=== PATIENT | female | born 1950 | race Caucasian/White ===

== ENCOUNTER → 2016-09-17 | Outpatient (CLI) | payer BC ==
[~2016-09-17] MED LIST: CATAPRES 0.1MG0.1 MG PO; COZAAR25 MG PO; DIABETA 5 MG TAB5 MG PO; ESTRADIOL1 EAC7 TD; FORTAMET500 MG PO; MULTI FOR HER1 EACH PO; OMEGA 3 FISH O1 EACH PO; OMNICEF 300 MG300 MG PO; PRAVASTATIN SOD40 MG PO; TYLENOL 325MG325 MG PO
== END ==
LOC: MAMO 15:00
DX: I10 Essential (primary) hypertension (principal); Z80.3 Family history of malignant neoplasm of breast; R92.1 Mammographic calcification found on diagnostic imaging of breast
CPT/HCPCS: G0202

== ENCOUNTER → 2016-10-03 | Outpatient (CLI) | payer BC | LOC: MAMO 07:57 | DX: R92.8 Other abnormal and inconclusive findings on diagnostic imaging of breast (principal) | CPT/HCPCS: G0206 ==

== ENCOUNTER → 2020-10-06 | Outpatient (CLI) | payer BC, OTHER | LOC: MAMO 08-29 09:30 | DX: Z12.31 Encounter for screening mammogram for malignant neoplasm of breast (principal); Z53.9 Procedure and treatment not carried out, unspecified reason ==

== ENCOUNTER → 2020-11-17 | Outpatient (CLI) | payer BC | LOC: LAB 09:20 | DX: Z76.82 Awaiting organ transplant status (principal) | CPT/HCPCS: 36415 ==

== ENCOUNTER → 2020-12-01 | Outpatient (CLI) | payer BC ==
[~2020-12-01] VITALS: Ht 157.5 cm; Wt 69.9 kg
[2020-12-01 10:30] LABS: HEMOGLOBIN 8.6 gm/dl (12.3-15.3)
== END ==
LOC: OPSV 09:00
PROVIDERS: Internal Medicine
DX: I12.9 Hypertensive chronic kidney disease with stage 1 through stage 4 chronic kidney disease, or unspecified chronic kidney disease (principal); N18.4 Chronic kidney disease, stage 4 (severe); D63.1 Anemia in chronic kidney disease; E55.9 Vitamin D deficiency, unspecified; E53.8 Deficiency of other specified B group vitamins
CPT/HCPCS: 36415; 85014; 85018; 96372; Q4081; Q5105

== ENCOUNTER → 2020-12-13 | Outpatient (CLI) | payer BC ==
[~2020-12-13] VITALS: Ht 157.5 cm; Wt 69.9 kg
[2020-12-13 10:32] LABS: HEMOGLOBIN 8.5 gm/dl (12.3-15.3)
== END ==
LOC: MAMO 10-06 11:30 → OPSV 09:50 → MAMO 13:00
PROVIDERS: Family Medicine
DX: Z01.818 Encounter for other preprocedural examination (principal); Z12.31 Encounter for screening mammogram for malignant neoplasm of breast; E11.22 Type 2 diabetes mellitus with diabetic chronic kidney disease; I12.9 Hypertensive chronic kidney disease with stage 1 through stage 4 chronic kidney disease, or unspecified chronic kidney disease; D63.1 Anemia in chronic kidney disease; N18.4 Chronic kidney disease, stage 4 (severe); Z76.82 Awaiting organ transplant status
CPT/HCPCS: 36415; 77063; 77067; 85014; 85018; 96372; Q5105

== ENCOUNTER → 2020-12-27 | Outpatient (CLI) | payer BC, MEDICARE ==
[~2020-12-27] VITALS: Ht 157.5 cm; Wt 69.9 kg
== END ==
LOC: OPSV 10:00
PROVIDERS: Internal Medicine
DX: N18.4 Chronic kidney disease, stage 4 (severe) (principal); D63.1 Anemia in chronic kidney disease
CPT/HCPCS: 36415; 85014; 85018; 96372; Q5105

== ENCOUNTER → 2021-01-10 | Outpatient (CLI) | payer BC, MEDICARE ==
[~2021-01-10] VITALS: Ht 157.5 cm; Wt 69.9 kg
== END ==
LOC: OPSV 09:03
PROVIDERS: Internal Medicine Nephrology
DX: N18.4 Chronic kidney disease, stage 4 (severe) (principal); D63.1 Anemia in chronic kidney disease
CPT/HCPCS: 36415; 85014; 85018; 96372; Q5106

== ENCOUNTER → 2021-01-25 | Outpatient (CLI) | payer BC, MEDICARE ==
[~2021-01-25] VITALS: Ht 157.5 cm; Wt 69.9 kg
[2021-01-25 09:33] LABS: HEMOGLOBIN 8.1 gm/dl (12.3-15.3)
== END ==
LOC: OPSV 01-24 10:00
PROVIDERS: Internal Medicine Nephrology
DX: N18.4 Chronic kidney disease, stage 4 (severe) (principal); D63.1 Anemia in chronic kidney disease
CPT/HCPCS: 36415; 85014; 85018; 96372; Q5106

== ENCOUNTER → 2021-02-08 | Outpatient (CLI) | payer BC, MEDICARE ==
[~2021-02-08] VITALS: Ht 157.5 cm; Wt 69.9 kg
[2021-02-08 09:50] LABS: HEMOGLOBIN 8.3 gm/dl (12.3-15.3)
== END ==
LOC: OPSV 09:00
PROVIDERS: Internal Medicine Nephrology
DX: N18.4 Chronic kidney disease, stage 4 (severe) (principal); D63.1 Anemia in chronic kidney disease
CPT/HCPCS: 36415; 85014; 85018; 96372; Q5105

== ENCOUNTER → 2021-02-21 | Outpatient (CLI) | payer BC, MEDICARE ==
[~2021-02-21] VITALS: Ht 157.5 cm; Wt 69.9 kg
[2021-02-21 10:01] LABS: HEMOGLOBIN 8.2 gm/dl (12.3-15.3)
== END ==
LOC: OPSV 09:00
PROVIDERS: Internal Medicine Nephrology
DX: N18.4 Chronic kidney disease, stage 4 (severe) (principal); D63.1 Anemia in chronic kidney disease
CPT/HCPCS: 36415; 85014; 85018; 96372; Q5105; Q5106

== ENCOUNTER → 2021-03-07 | Outpatient (CLI) | payer BC, MEDICARE ==
[~2021-03-07] VITALS: Ht 157.5 cm; Wt 69.9 kg
[2021-03-07 10:00] LABS: HEMOGLOBIN 8.7 gm/dl (12.3-15.3)
== END ==
LOC: OPSV 09:00
PROVIDERS: Internal Medicine
DX: N18.4 Chronic kidney disease, stage 4 (severe) (principal); D63.1 Anemia in chronic kidney disease
CPT/HCPCS: 36415; 85014; 85018; 96372; Q5105

== ENCOUNTER → 2021-03-21 | Outpatient (CLI) | payer BC, MEDICARE ==
[~2021-03-21] VITALS: Ht 157.5 cm; Wt 69.9 kg
[2021-03-21 09:47] LABS: HEMOGLOBIN 8.9 gm/dl (12.3-15.3)
== END ==
LOC: OPSV 09:15
PROVIDERS: Internal Medicine Nephrology
DX: N18.4 Chronic kidney disease, stage 4 (severe) (principal); D63.1 Anemia in chronic kidney disease
CPT/HCPCS: 36415; 85014; 85018; 96372; Q5106

== ENCOUNTER → 2021-04-04 | Outpatient (CLI) | payer BC, MEDICARE ==
[~2021-04-04] VITALS: Ht 157.5 cm; Wt 69.9 kg
[2021-04-04 09:20] LABS: HEMOGLOBIN 8.9 gm/dl (12.3-15.3)
== END ==
LOC: OPSV 09:00
PROVIDERS: Internal Medicine
DX: N18.4 Chronic kidney disease, stage 4 (severe) (principal); D63.1 Anemia in chronic kidney disease
CPT/HCPCS: 36415; 85014; 85018; 96372; Q5105

== ENCOUNTER 2021-04-07 11:39 | Emergency (ER) | payer BC, MEDICARE ==
[~2021-04-07] VITALS: Ht 154.9 cm; Wt 55.8 kg
== END 2021-04-07 15:25 | disposition home or self-care (01) ==
LOC: ER1 11:39
DX: Z23 Encounter for immunization (principal); U07.1 COVID-19; N18.9 Chronic kidney disease, unspecified; Z90.710 Acquired absence of both cervix and uterus
CPT/HCPCS: 99283; M0243